=== PATIENT | male | born 1980 | race African-American/Black ===

== ENCOUNTER 2024-06-22 14:15 | Emergency (ER) | payer OTHER ==
[~2024-06-22] VITALS: Ht 188 cm; Wt 100.0 kg
[2024-06-22 14:21] VITALS: BP 161/89; PULSE 59; RESP 18; TEMP 37; O2SAT 100
== END 2024-06-22 14:48 ==
LOC: ER 14:15
DX: M25.561 Pain in right knee (principal); M25.562 Pain in left knee
CPT/HCPCS: 73560; 99283; Z7610